=== PATIENT | male | born 1980 | race Caucasian/White ===

== ENCOUNTER 2016-11-21 13:18 | Emergency (ER) | payer BC ==
--- NOTE | 2016-11-21 14:11 | EDM.PDOC ---
ED HPI GENERAL MEDICAL PROBLEM - General Chief Complaint: General Stated Complaint: RT SIDE HURTS Time Seen by Provider: 11/21/16 13:45 Source of Information: Reports: Patient History Limitations: Reports: No Limitations - History of Present Illness INITIAL COMMENTS - FREE TEXT/NARRATIVE: HISTORY AND PHYSICAL: History of present illness: Patient is a 36-year-old male who presents to the emergency room with complaints of right flank pain that radiates into his groin. States he is initially from [facility] and was on his way back to [place] for work when the pain started. While driving from [place] he did stop in [place] and was evaluated in an urgent care center. They did a urinalysis at that time and stated the results were normal. He was prescribed tramadol for pain relief and informed he needed to follow-up with his primary care provider. Patient reports he has taken the tramadol and has not had any relief. Patient has a history of kidney stones in the past, with the last one being approximately one year ago. States he was able to pass those on his own. States the pain is similar but more towards the anterior abdomen. Patient is able to void but reports having a weak stream. Denies any obvious blood in his urine. All movements are normal. Denies any nausea, vomiting, diarrhea. Denies any fever or chills. Denies any chest pain or shortness of breath. Review of systems: As per history of present illness and below otherwise all systems reviewed and negative. Past medical history: As per history of present illness and as reviewed below otherwise noncontributory. Surgical history: As per history of present illness and as reviewed below otherwise noncontributory. Social history: No reported history of drug or alcohol abuse. Family history: As per history of present illness and as reviewed below otherwise noncontributory. Physical exam: Gen.: Well-developed and well-nourished 36 show male. Able to speak in full sentences without shortness of breath. Alert and oriented. HEENT: Atraumatic, normocephalic, pupils reactive, negative for conjunctival pallor or scleral icterus, mucous membranes moist, throat clear, neck supple, nontender, trachea midline. Lungs: Clear to auscultation, breath sounds equal bilaterally, chest nontender. Heart: S1S2, regular rate and rhythm Abdomen: Soft, nondistended, nontender. Negative for masses or hepatosplenomegaly. Right sided costovertebral tenderness. Pelvis: Stable nontender. Genitourinary: Deferred. Rectal: Deferred. Extremities: Atraumatic, negative for cords or calf pain. Neurovascular unremarkable. Neuro: Awake, alert, oriented. Cranial nerves II through XII unremarkable. Cerebellum unremarkable. Motor and sensory unremarkable throughout. Exam nonfocal. Offered patient Toradol for pain management, patient declined at this time as he states he took a tramadol prior to arrival. He would like further evaluation to ensure that he does not have a kidney stone. CT scan will be ordered at this time. CT scan was normal. Patient continues to have right upper quadrant pain into the flank. We discussed the necessity for follow-up with his primary care provider and likely to need a HIDA scan to rule out gallbladder disease. Patient did deny any association with food with his pain. States it is constant and feels similar to his previous kidney stone. The CT scan shows a kidney stone but still in the opposite kidney, the urinalysis did not show any blood which would indicate that he had RT past stone previously as well. Patient voices understanding and is agreeable to plan of care, denies any further questions at this time Diagnostics: CBC, CMP, CT abdomen and pelvis without contrast, urinalysis Therapeutics: Declined Toradol Impression: Abdominal pain Kidney stone Plan: 1. Please follow-up with your primary care provider to establish care as he may need a HIDA scan if this right upper quadrant pain continues to rule out your gallbladder. 2. He may take the [place] for moderate to severe pain. Please do not take any additional Tylenol/acetaminophen with this medication. Do not take this medication while driving or needing to be functioning at work. He states the Zofran as needed for nausea. 3.Return to the ED as needed as discussed Definitive disposition and diagnosis as appropriate pending reevaluation and review of above. Duration: Day(s): Location: Reports: Abdomen, Back Right Back Pain Score (Numeric/FACES): 5 - Related Data Allergies Allergy/AdvReac Type Severity Reaction Status Date / Time No Known Allergies Allergy Verified 11/21/16 13:36 Home Meds: Home Meds Olmesartan/Amlodipin/Hcthiazid [Tribenzor 40-5-12.5 MG] 1 mg PO BEDTIME [History] traMADol [Ultram] 50 mg PO PRN 11/21/16 [History] Past Medical History HEENT History: Reports: None Cardiovascular History: Reports: Hypertension Respiratory History: Reports: None Gastrointestinal History: Reports: None Genitourinary History: Reports: None Neurological History: Reports: None Psychiatric History: Reports: None Endocrine/Metabolic History: Reports: None Hematologic History: Reports: None Immunologic History: Reports: None Oncologic (Cancer) History: Reports: None Dermatologic History: Reports: None - Infectious Disease History Infectious Disease History: Reports: Chicken Pox - Past Surgical History Head Surgeries/Procedures: Reports: None Musculoskeletal Surgical History: Reports: Other (See Below) Other Musculoskeletal Surgeries/Procedures:: back fussion T4 threw T8 Social & Family History - Family History Family Medical History: Noncontributory - Tobacco Use Smoking Status *Q: Current Every Day Smoker Years of Tobacco use: 18 Packs/Tins Daily: 0.5 Used Tobacco, but Quit: No - Caffeine Use Caffeine Use: Reports: Coffee, Energy Drinks - Recreational Drug Use Recreational Drug Use: No ED ROS GENERAL - Review of Systems Review Of Systems: ROS reveals no pertinent complaints other than HPI. ED EXAM, GENERAL - Physical Exam Exam: See Below (See dictation) Course - Vital Signs Last Recorded V/S: Last Vital Signs Temp 36.4 C 11/21/16 14:01 Pulse 95 11/21/16 14:01 Resp 18 11/21/16 14:01 BP 138/94 H 11/21/16 14:01 Pulse Ox 96 11/21/16 14:01 - Orders/Labs/Meds Labs: Laboratory Tests 11/21/16 11/21/16 11/21/16 Range/Units 14:16 14:21 14:21 WBC 12.49 H (4.0-11.0) K/uL RBC 5.94 H (4.50-5.90) M/uL Hgb 17.8 H (13.0-17.0) g/dL Hct 51.8 H (38.0-50.0) % MCV 87.2 (80.0-98.0) fL MCH 30.0 (27.0-32.0) pg MCHC 34.4 (31.0-37.0) g/dL RDW Std Deviation 44.3 (28.0-62.0) fl RDW Coeff of [place] 14 (11.0-15.0) % Plt Count 250 (150-400) K/uL MPV 10.70 (7.40-12.00) fL Neut % (Auto) 63.1 (48.0-80.0) % Lymph % (Auto) 20.3 (16.0-40.0) % [place] % (Auto) 13.9 (0.0-15.0) % Eos % (Auto) 2.2 (0.0-7.0) % Baso % (Auto) 0.5 (0.0-1.5) % Neut # (Auto) 7.9 H (1.4-5.7) K/uL Lymph # (Auto) 2.5 H (0.6-2.4) K/uL [place] # (Auto) 1.7 H (0.0-0.8) K/uL Eos # (Auto) 0.3 (0.0-0.7) K/uL Baso # (Auto) 0.1 (0.0-0.1) K/uL Nucleated RBC % 0.0 /100WBC Nucleated RBCs # 0 K/uL Sodium 137 (136-146) mmol/L Potassium 4.1 (3.5-5.1) mmol/L Chloride 102 (98-110) mmol/L Carbon Dioxide 26 (21-31) mmol/L BUN 22 (6.0-23.0) mg/dL Creatinine 1.0 (0.6-1.5) mg/dL Est Cr Clr Drug Dosing 112.09 mL/min Estimated GFR (MDRD) > 60.0 ml/min Glucose 93 (60-110) mg/dL Calcium 10.4 (8.8-10.8) mg/dL Total Bilirubin 1.6 H (0.1-1.5) mg/dL AST 17 (5-40) IU/L ALT 39 (8-54) IU/L Alkaline Phosphatase 60 (40-150) Total Protein 8.0 (6.0-8.0) g/dL Albumin 4.5 (3.5-5.0) g/dL Globulin 3.5 (2.0-3.5) g/dL Albumin/Globulin Ratio 1.3 (1.3-2.8) Urine Color YELLOW Urine Appearance CLEAR Urine pH 6.0 (5.0-8.0) Ur Specific [place] 1.020 (1.001-1.035) Urine Protein NEGATIVE (NEGATIVE) mg/dL Urine Glucose (UA) NEGATIVE (NEGATIVE) mg/dL Urine Ketones NEGATIVE (NEGATIVE) mg/dL Urine Occult Blood TRACE-LYSED (NEGATIVE) Urine Nitrite NEGATIVE (NEGATIVE) Urine Bilirubin NEGATIVE (NEGATIVE) Urine Urobilinogen 0.2 (<2.0) EU/dL Ur Leukocyte Esterase NEGATIVE (NEGATIVE) Urine RBC 0-1 (0-2/HPF) Urine WBC 0-1 (0-5/HPF) Ur Epithelial Cells RARE (NONE-FEW) Urine Bacteria RARE (NEGATIVE) Meds: Medications Discontinued Medications Generic Name Dose Route Start Last Admin Trade Name Freq PRN Reason Stop Dose Admin Tamsulosin HCl 0.4 mg 11/21/16 15:11 11/21/16 15:44 Flomax PO 11/21/16 15:12 0.4 mg ONETIME ONE Administration Departure - Departure Time of Disposition: 16:11 Disposition: Home, Self-Care 01 Clinical Impression: Kidney stone, Abdominal pain - Discharge Information Referrals: PCP,None [Primary Care Provider] - Forms: ED Department Discharge Additional Instructions: My general discharge The following information is given to patients seen in the emergency department who are being discharged to home. This information is to outline your options for follow-up care. We provide all patients seen in our emergency department with a follow-up referral. The need for follow-up, as well as the timing and circumstances, are variable depending upon the specifics of your emergency department visit. If you don't have a primary care physician on staff, we will provide you with a referral. We always advise you to contact your personal physician following an emergency department visit to inform them of the circumstance of the visit and for follow-up with them and/or the need for any referrals to a consulting specialist. The emergency department will also refer you to a specialist when appropriate. This referral assures that you have the opportunity for follow-up care with a specialist. All of these measure are taken in an effort to provide you with optimal care, which includes your follow-up. Under all circumstances we always encourage you to contact your private physician who remains a resource for coordinating your care. When calling for follow-up care, please make the office aware that this follow-up is from your recent emergency room visit. If for any reason you are refused follow-up, please contact the [facility] Emergency Department at and asked to speak to the emergency department charge nurse. [facility] [address] [place] [address] [id number] [facility] Specialty [facility] - Urology [address] [place] [id number] 1. Please follow-up with your primary care provider to establish care as he may need a HIDA scan if this right upper quadrant pain continues to rule out your gallbladder. 2. He may take the [place] for moderate to severe pain. Please do not take any additional Tylenol/acetaminophen with this medication. Do not take this medication while driving or needing to be functioning at work. He states the Zofran as needed for nausea. 3.Return to the ED as needed as discussed
[2016-11-21 14:55] LABS: CHLORIDE,CL 102 mmol/L (98-110); SODIUM,NA 137 mmol/L (136-146)
--- NOTE | 2016-11-21 14:55 | CT ---
CT of the abdomen and pelvis without contrast. HISTORY: Possible kidney stone TECHNIQUE: Axial CT images were obtained of the abdomen and pelvis without contrast. Coronal and sagi ttal reconstructions obtained. FINDINGS: The lung bases are clear, no pleural effusion. Mild bibasilar atelectasis. The liver, spleen, adrenal glands, and pancreas appear unremarkable for noncontrast examination. The gallbladder appears normal. There is no bulky retroperitoneal lymphadenopathy. No abdominal ascites. There is a 3 mm stone within the left kidney. No stones noted along the courses of the ureters bilate rally and no evidence of hydronephrosis. The large and small bowel are normal in caliber without evidence of obstruction. The appendix appears normal. There is no bulky pelvic lymphadenopathy. No free fluid. No free air. The urinary bladder ap pears normal. Tiny fat-containing right inguinal hernia. Mild right deformity noted at at T9. Otherwise no suspicious osseous abnormalities. IMPRESSION: 1. No acute findings within the abdomen or pelvis. 2. There is a 3 mm nonobstructing left renal stone.
[2016-11-21] MEDS ORDERED: Tamsulosin 0.4 MG Cap.ER PO ONE (15:11)
[2016-11-21 19:31] VITALS: BP 137/100
== END 2016-11-21 16:22 | disposition home or self-care (01) ==
LOC: MW.ED 13:18
DX: N20.0 Calculus of kidney (principal); I10 Essential (primary) hypertension; F17.210 Nicotine dependence, cigarettes, uncomplicated
CPT/HCPCS: 36415; 74176; 80053; 81001; 85025; 99284; A9270; 99283